=== PATIENT | male | born 1970 | race Two or more races ===

== ENCOUNTER 2022-07-29 18:49 | Emergency (ER) | payer OTHER ==
[~2022-07-29] VITALS: Ht 170.2 cm; Wt 110.0 kg
[2022-07-29 19:48] LABS: Basophils # (auto) 0.2 10 ^3/uL (0-0.2); Basophils % (auto) 1.7 % (0.0-2.0); Eosinophils # (auto) 0.2 10 ^3/uL (0-0.8); Eosinophils % (auto) 1.7 % (0.0-7.0); Hematocrit 48.2 % (41.0-53.0); Hemoglobin 17.1 g/dL (13.5-17.5); Lymphocytes # (auto) 3.4 10 ^3/uL (0.4-5.4); Mean Corpuscular Hemoglobin 32.2 pg (28.0-32.0); Mean Corpuscular Hgb Conc. 35.5 g/dL (32.0-36.0); Mean Corpuscular Volume 90.7 fL (80.0-100.0); Monocytes # (auto) 0.6 10 ^3/uL (0-1.3); Monocytes % (auto) 6.7 % (0.0-12.0); Neutrophils # (auto) 4.9 10 ^3/uL (1.6-8.6); Neutrophils % (auto) 52.9 % (37.0-80.0); Nucleated Red Blood Cells % 0.2 %; Red Blood Cells 5.31 10^6/uL (4.5-5.90); Red Cell Distribution Width 12.9 % (11.8-14.3); White Blood Cell 9.2 10^3/uL (4.4-10.8)
[2022-07-29 19:52] LABS: Urine Bacteria NONE SEEN /hpf (None Seen); Urine Blood Negative /uL (Negative); Urine WBC <1 /hpf (0 - 3)
[2022-07-29 20:20] LABS: Albumin 3.4 g/dL (3.4-5.0); Potassium 4.5 mmol/L (3.5-5.1)
[2022-07-29 20:25] LABS: Calcium 7.8 mg/dL (8.5-10.1)
[2022-07-29 20:26] LABS: Total Protein 7.8 g/dL (6.4-8.2)
[2022-07-29] MEDS ORDERED: InsuLIN REG 1unit/0.01ml Soln (100units/ml) IV ONE (20:45)
[2022-07-29] MEDS ORDERED: HYDROcodone-ACET 5/325MG TAB PO ONE (22:00)
[2022-07-29 22:34] LABS: Bilirubin, Total 0.8 mg/dL (0.2-1.0)
[2022-07-29] MEDS ORDERED: SODIUM CHLORIDE 0.9% 1,000 ML IV ONE (22:45)
[2022-07-30 02:30] VITALS: BP 162/102
== END 2022-07-30 02:43 | disposition home or self-care (01) ==
LOC: ER 18:49
DX: E11.65 Type 2 diabetes mellitus with hyperglycemia (principal); I10 Essential (primary) hypertension; E78.5 Hyperlipidemia, unspecified
CPT/HCPCS: 36415; 74176; 80053; 81001; 82962; 83605; 84484; 85025; 93005; 96361; 96374; 99285; J1815

== ENCOUNTER 2022-10-22 10:54 | Emergency (ER) | payer MEDICAID ==
[~2022-10-22] VITALS: Ht 180.3 cm; Wt 100.6 kg
[~2022-10-22 10:54] MED LIST: HYDR-4798 PO; IBUP800T26 PO
[2022-10-22] MEDS ORDERED: KETOROLAC TROMETH 60MG/2ML VIAL IM ONE (12:00)
[2022-10-22 13:39] LABS: Urine Bacteria NONE SEEN /hpf (None Seen); Urine Blood Negative /uL (Negative); Urine Budding Yeast OCCASIONAL /hpf (None Seen); Urine Specific Gravity 1.039 (1.001-1.035); Urine WBC <1 /hpf (0 - 3)
[2022-10-22] MEDS ORDERED: CYCL-837 PO (15:01)
[2022-10-22] MEDS ORDERED: CIPR-173 PO (15:01)
[2022-10-22] MEDS ORDERED: ACET-1079 PO (15:02)
[2022-10-22 15:15] VITALS: BP 147/84
== END 2022-10-22 15:15 | disposition home or self-care (01) ==
LOC: ER 10:54
DX: M54.50 Low back pain, unspecified (principal); M79.18 Myalgia, other site; N41.9 Inflammatory disease of prostate, unspecified
CPT/HCPCS: 71250; 74176; 81001; 96372; 99284; J1885

== ENCOUNTER 2022-11-14 09:18 | Emergency (ER) | payer MEDICAID ==
[~2022-11-14] VITALS: Ht 167.6 cm; Wt 102.1 kg
[~2022-11-14 09:18] MED LIST changes: +ACET-1079 PO; +CIPR-173 PO; +CYCL-837 PO
[2022-11-14 12:05] VITALS: BP 148/94
[2022-11-14] MEDS ORDERED: cefTRIAXone SOD 1,000 MG VL IM ONE (12:45)
[2022-11-14] MEDS ORDERED: ACETAMINOPHEN 500 MG TAB PO ONE (12:45)
[2022-11-14 13:55] LABS: Urine Bacteria NONE SEEN /hpf (None Seen); Urine Blood Negative /uL (Negative); Urine Hyaline Cast FEW /lpf (0 - 2); Urine Mucus FEW (None Seen); Urine Specific Gravity 1.042 (1.001-1.035); Urine WBC <1 /hpf (0 - 3)
[2022-11-14] MEDS ORDERED: ACET1CAP14 PO (14:33)
[2022-11-14] MEDS ORDERED: CYCL-837 PO (14:33)
[2022-11-14] MEDS ORDERED: CIPR500T4 PO (14:33)
== END 2022-11-14 14:44 | disposition home or self-care (01) ==
LOC: ER 09:18
DX: N12 Tubulo-interstitial nephritis, not specified as acute or chronic (principal); K76.0 Fatty (change of) liver, not elsewhere classified; Z79.899 Other long term (current) drug therapy
CPT/HCPCS: 72100; 74176; 81001; 96372; 99285; J0696

== ENCOUNTER 2025-04-11 10:33 | Emergency (ER) | payer MEDICAID ==
[~2025-04-11] VITALS: Ht 170.2 cm; Wt 109.0 kg
[~2025-04-11 10:33] MED LIST changes: +ACET1CAP14 PO; +CIPR500T4 PO; +IBUP-1455 PO; -IBUP800T26 PO
--- NOTE | 2025-04-11 10:39 | ED.PDOC ---
History of Present Illness HPI Comments 54-year-old male brought in by EMS presents with a chief complaint of nausea and vomiting x 20 minutes. Patient was given Zofran en route by EMS and states that he is now feeling a lot better and would like to leave. Patient is alert and oriented x 4. Time Seen by MD: 10:29 Primary Care Provider: unknown Reviewed Notes: Medications, Allergies Allergies: Coded Allergies: NO KNOWN ALLERGIES (Unverified , 07/29/22) Home Meds Active Scripts Acetaminophen (Tylenol) 325 Mg Cap, 325 MG PO Q4HPRN PRN, #30 CAP 0 Refills Take 1-2 caps po q4h prn for pain/fever Prov:HOODROME MALLOY ACID CUTTER 11/14/22 Cyclobenzaprine Hcl (Cyclobenzaprine Hcl) 5 Mg Tab, 1 TAB PO TID, #12 TAB 0 Refills Prov:ROME HOOD ACID CUTTER 11/14/22 Ciprofloxacin Hcl (Ciprofloxacin Hcl) 500 Mg Tab, 1 TAB PO BID for 14 Days, #28 TAB 0 Refills Prov:HOOD,ROME M ACID CUTTER 11/14/22 Acetaminophen (Tylenol) 325 Mg Tb, 500 MG PO TIDP PRN for 10 Days, #47 TAB Prov:SAMIA SMITH S DO 10/22/22 Cyclobenzaprine Hcl (Cyclobenzaprine Hcl) 5 Mg Tab, 10 MG PO TIDP PRN for 7 Days, #42 TAB Prov:SAMIA SMITH DO 10/22/22 Ciprofloxacin Hcl (Cipro) 500 Mg Tab, 500 MG PO BID for 7 Days, #14 TAB Prov:SAMIA SMITH DO 10/22/22 Hydrocodone-Acetaminophen (Hydrocodone Bitartrate/AC 10-325 mg) 1 Tab Tab, 1 TAB PO TID, #20 TAB Prov:ELIECER DOUGLASS PAC 09/14/22 Ibuprofen Micronized (Ibuprofen) 800 Mg Tab, 800 MG PO TID, #30 TAB Prov:ELIECER DOUGLASS PAC 09/14/22 Information Source: Patient, Emergency Med Personnel Mode of Arrival: EMS Severity: Moderate Timing: Minutes Duration: Since onset Prehospital treatment: Counter Supervisor, Treatment (ZOFRAN) Past Medical History PAST MEDICAL HISTORY: UTI'S Surgical History: Denies all surgeries Family History Family History: Reviewed,noncontributory to illness, No family hx of Cancer, No family hx of DM, No family hx of Heart richard, No family hx of HTN, No family hx ofKidney richard, No family hx of Liver richard, No family hx of Lung richard, No family hx of Stroke Social History Smoker: Non-Smoker Alcohol: Denies ETOH Use Drugs: Denies Drug Use Lives In: Home Constitutional: denies: chills, diaphoresis, fatigue, fever, malaise, sweats, weakness, others EENTM: denies: blurred vision, double vision, ear bleeding, ear discharge, ear drainage, ear pain, ear ringing, eye pain, eye redness, hearing loss, mouth pain, mouth swelling, nasal discharge, nose bleeding, nose congestion, nose pain, photophobia, tearing, throat pain, throat swelling, voice changes, others Respiratory: denies: cough, hemoptysis, orthopnea, SOB at rest, shortness of breath, SOB with excertion, stridor, wheezing, others Cardiovascular: denies: chest pain, dizzy spells, diaphoresis, Dyspnea on exertion, edema, irregular heart beat, left arm pain, lightheadedness, palpitations, PND, syncope, others Gastrointestinal: reports: nausea, vomiting; denies: abdomen distended, abdominal pain, blood streaked bowels, constipated, diarrhea, dysphagia, difficulty swallowing, hematemesis, melena, poor appetite, poor fluid intake, rectal bleeding, rectal pain, others Genitourinary: denies: burning, dysuria, flank pain, frequency, hematuria, incontinence, penile discharge, penile sore, pain, testicle pain, testicle swelling, urgency, others Neurological: denies: dizziness, fainting, headache, left sided numbness, left sided weakness, numbness, paresthesia, pre-existing deficit, right sided numbness, right sided weakness, seizure, speech problems, tingling, tremors, weakness, others Musculoskeletal: denies: back pain, gout, joint pain, joint swelling, muscle pain, muscle stiffness, neck pain, others Integumetry: denies: bruises, change in color, change in hair/nails, dryness, laceration, lesions, lumps, rash, wounds, others Allergic/Immunocompromised: denies: Difficulty Healing, Frequent Infections, Hives, Itching, others Hematologic/Lymphatic: denies: anemia, blood clots, easy bleeding, easy bruising, swollen glands, others Endocrine: denies: excessive hunger, excessive sweating, excessive thirst, excessive urination, flushing, intolerance to cold, intolerance to heat, unexplained weight gain, unexplained weight loss, others Psychiatric: denies: anxiety, bipolar disorder, depression, hopeless, panic disorder, schizophrenia, sleepless, suicidal, others All Other Systems: Reviewed and Negative Physical Exam General Appearance: Moderate Distress, Normal HEENT: Normal ENT Inspection, Pharynx Normal, TMs Normal Neck: Full Range of Motion, Non-Tender, Normal, Normal Inspection Respiratory: Chest Non-Tender, Lungs Clear, No Accessory Muscle Use, No Respiratory Distress, Normal Breath Sounds Cardiovascular: No Edema, No JVD, No Murmur, No Gallop, Normal Peripheral Pulses, Regular Rate/Rhythm Breast Exam: Deferred Gastrointestinal: No Organomegaly, Non Tender, No Pulsatile Mass, Normal Bowel Sounds, Soft Genitalia: Deferred Pelvic: Deferred Rectal: Deferred Extremities: No calf tenderness, Normal capillary refill, Normal inspection, Normal range of motion, Non-tender, No pedal edema Musculoskeletal : Apperance: Normal Neurologic: Alert, certified medical transcriptionist II-XII nml as Tested, No Motor Deficits, Normal Affect, Normal Mood, No Sensory Deficits Cerebellar Function: Normal Reflexes: Normal Skin: Dry, Normal Color, Warm Peripheral Pulses: 3+ Radial (R), 3+ Radial (L) Lymphatic: No Adenopathy Was a procedure done? Was a procedure done?: No Differential Dx Considerations may include: Gastroenteritis Electrolyte imbalance X-Ray, Labs, Meds, VS Patient alert pain Called the paramedics because of nausea vomiting. Was given Zofran in the field. States that he is feeling much better. Insists on leaving. Abdomen is soft nontender. Explained to the patient that he should get fluids. Insists on leaving. Time of 1ST Reevaluation: 10:59 Reevaluation 1ST: Improved Patient Education/Counseling: Diagnosis, Treatment, Need For Follow Up Family Education/Counseling: No Family Present Departure 1 Departure Time of Disposition: 10:54 Impression: Primary Impression: Gastroenteritis Disposition: 07 LEFT AWOL/ELOPED Condition: Good Discharged With: Self Critical Care Note Critical Care Time?: No Stability Stability form required: No Heart Score Heart Score: Heart Score Response (Comments) Value History N/A 0 EKG N/A 0 Age N/A 0 Risk Factors N/A 0 Troponin N/A 0 Total 0 I personally scribed for CURTIS SHIN MD ([email or web address]) on 04/11/25 at 10:39. Electronically submitted by Kiko Danielson ([email or web address]). CURTIS SHIN MD Apr 11, 2025 10:39
[2025-04-11 11:07] VITALS: BP 165/85; PULSE 84; RESP 16; TEMP 98.6; O2SAT 98
== END 2025-04-11 10:40 | disposition left against medical advice (07) ==
LOC: EDBD 10:33 → ER 10:33
DX: K52.9 Noninfective gastroenteritis and colitis, unspecified (principal); Z79.1 Long term (current) use of non-steroidal anti-inflammatories (NSAID); Z79.899 Other long term (current) drug therapy